=== PATIENT | female | born 1985 ===

== ENCOUNTER 2017-11-14 18:35 | Inpatient (IN) | payer OTHER ==
[~2017-11-14] VITALS: Ht 157.5 cm; Wt 65.8 kg
[2017-11-15] MEDS ORDERED: PRENATAL 19 TA1 EAC1 (15:08)
== END 2017-11-16 12:35 | disposition home or self-care (01) | DRG 775 ==
LOC: LDR 18:35 → OB/GYN 11-15 04:44
PROC: 10E0XZZ Delivery of Products of Conception, External Approach (ICD-10-PCS; principal; 2017-11-14)
PROC: 0KQM0ZZ Repair Perineum Muscle, Open Approach (ICD-10-PCS; 2017-11-14)
PROC: 4A033R1 Measurement of Arterial Saturation, Peripheral, Percutaneous Approach (ICD-10-PCS; 2017-11-14)
PROC: 4A1HXCZ Monitoring of Products of Conception, Cardiac Rate, External Approach (ICD-10-PCS; 2017-11-14)
DX: O70.1 Second degree perineal laceration during delivery (principal); Z37.0 Single live birth; O99.824 Streptococcus B carrier state complicating childbirth; Z3A.37 37 weeks gestation of pregnancy